=== PATIENT | female | born 1955 | race Caucasian/White ===

== ENCOUNTER 2019-06-22 08:55 | Observation (INO) ==
--- NOTE | 2019-06-22 09:02 | Emergency Department Note ---
Disposition Clinical Impression: Chest pain Disposition: Admitted As Inpatient Condition: Good Time of Disposition: 13:00 Chest Pain HPI - General Chief Complaint: ED General Medical Stated Complaint: shortness of breath, chest tightness Time Seen by Provider: 06/22/19 10:28 Source: patient, EMS Mode of arrival: EMS Limitations: no limitations Vital Signs Reviewed: Yes Nursing Notes Reviewed: Yes - History of Present Illness HPI Narrative: Patient was sitting DRINKING coffee when all of a sudden she became overwhelmed with nausea diaphoresis shortness of breath chest pressure. This is different than her typical chest pressure that she gets like when she has liver spasms if she calls it. She denies any blurred vision double vision she denies any actual vomiting. She states she crawled off the couch and then laid on the cold floor until EMS arrived. By the time EMS arrived patient was almost completely asymptomatic without any pain or symptoms. Patient's brother just recently had a heart attack approximately 2-3 weeks ago. Denies though any cough cold or flulike symptoms numbness tingling weakness recently gain weight loss any abdominal pain or discomfort. Last cardiac catheter/stress test was 30 years ago. She denies any additional complaints. Patient states that she does have some loss of memory as result of having Lyme disease symptoms and is result is also even had seizure secondary to this. All systems have been reviewed and are otherwise negative with complete entire review systems Pt complaint: chest pain Onset (ago): minute(s) Time: 08:00 Duration: constant Onset: other (While drinking coffee) Pain Location: substernal Severity: moderate Severity scale (1-10): 5 Quality: heaviness Pain Radiation: back Improves with: nothing Worsens with: nothing Context: other (recent lyme disease flair and chronic fatgue syndrome) Associated symptoms: Reports: nausea, diaphoresis, dyspnea. Denies: vomiting, sense of impending doom, syncope, palpitations, fever, cough, leg swelling Treatments prior to arrival chest pain: aspirin - Related Data Home Medications Medication Instructions Recorded Confirmed Levothyroxine [Synthroid] 88 mcg PO DAILY 05/30/16 10/19/18 Naltrexone HCl [Revia] 4.5 mg PO DAILY 05/30/16 10/19/18 Zinc [Zinc Lozenge] 50 mg PO DAILY 05/30/16 10/19/18 Cholecalciferol (D-3) [Vitamin D] 5,000 PO DAILY 04/22/19 Ciclopirox Olamine [Ciclopirox] 15 gm TP 04/22/19 Estradiol [Estrace] 42.5 gm VG 04/22/19 Furosemide [Lasix] 20 mg PO BID 04/22/19 04/22/19 LORazepam [Ativan] 0.5 mg PO BID PRN 04/22/19 04/22/19 Magnesium 200 mg PO TID 04/22/19 04/22/19 Potassium Chloride [Klor-Con 10] 10 PO BID 04/22/19 Allergies Allergy/AdvReac Type Severity Reaction Status Date / Time bee venom protein (honey bee) Allergy Anaphylaxis Verified 04/22/19 16:45 gluten Allergy See Verified 04/22/19 16:45 Comments Iodinated Contrast Media Allergy Hives Verified 04/22/19 16:45 [Iodinated Contrast Media - IV Dye] Penicillins Allergy Hives Verified 04/22/19 16:45 shellfish derived Allergy Hives Verified 04/22/19 16:45 Sulfa (Sulfonamide Allergy Hives Verified 10/19/18 16:01 Antibiotics) All systems ED: reviewed and negative except as stated. Review of Systems: As Per HPI Constitutional: Denies: fever, chills, weakness Eyes: Denies: eye pain, eye discharge ENT ED: Denies: ear pain, throat pain Cardiovascular: Reports: chest pain, other (Diaphoresis). Denies: palpitations, dyspnea on exertion Respiratory: Denies: cough, dyspnea, wheezes Gastrointestinal: Reports: nausea. Denies: abdominal pain, vomiting Genitourinary: Denies: urgency, dysuria Musculoskeletal: Denies: back pain, neck pain Integumentary: Denies: rash, abrasion Neurological: Denies: headache, weakness Psychiatric: Denies: anxiety, depression Endocrine: Denies: fatigue Hematological/Lymphatic: Denies: easy bleeding Allergic/Immunologic: Denies: facial swelling Chest Pain PMH - Past Medical History Medical history: Reports: osteoporosis, seizures, thyroid disease Surgical history: Reports: appendectomy, cholecystectomy, hysterectomy, orthopedic, other (Left foot surgery), other (Tonsillectomy, eye surgery) Psychiatric history: Reports: anxiety, depression - Social History Smoking Status: Never smoker Alcohol use: Reports: none Drug use: Reports: none Physical Exam - General Limitations: no limitations General appearance: alert, anxious - Head Head exam: atraumatic, normocephalic, normal inspection - Eye Eye exam: Present: normal appearance, PERRL, EOMI - ENT ENT exam: normal exam, normal oropharynx, mucous membranes moist - Neck Neck exam: Present: normal inspection, full ROM, trachea midline - Chest Chest inspection: Present: normal inspection, symmetric chest wall rise - Respiratory Respiratory exam: Present: normal lung sounds bilaterally - Cardiovascular Cardiovascular exam: Present: regular rate, normal rhythm, normal heart sounds - Abdominal Exam Abdominal exam: Present: soft, Non-Tender, normal bowel sounds. Absent: tenderness, distention, guarding, rebound, rigidity, mass, pulsatile mass - Expanded Upper Extremity Exam Shoulder exam: Present: normal inspection, full ROM Arm exam: Present: normal inspection, full ROM Elbow exam: Present: normal inspection, full ROM Forearm/Wrist exam: Present: normal inspection, full ROM Hand exam: Present: normal inspection, full ROM Neurosensory exam: Normal: radial nerve, ulnar nerve Vascular exam: Normal: capillary refill, radial pulse - Expanded Lower Extremity Exam Hip/Pelvis exam: Present: normal inspection, full ROM Upper leg exam: Present: normal inspection, full ROM Knee exam: Present: normal inspection, full ROM Lower leg exam: Present: normal inspection, full ROM Ankle exam: Present: normal inspection, full ROM Foot/toe exam: Present: normal inspection, full ROM Neurovascular/Tendon exam: Present: normal capillary refill, normal fine/light touch. Absent: motor deficit, sensory deficit, tendon deficit Gait: observed and normal - Back Exam Back exam: Present: normal inspection, full ROM. Absent: muscle spasm - Neurological Exam Neurological exam: Present: alert, oriented X3, CN II-XII intact, normal gait - Psychiatric Psychiatric exam: Present: normal affect, normal mood - Skin Skin exam: Present: warm, dry, intact, normal color Course Course Narrative: seen and evaluated examinations performed patient completely asymptomatic at this time she is resting comfortably at the bedside with all test results having metastatic her arrival here to the emergency room is less than she has a very strong history that this could be cardiac event as result we will recommend observation she is agreed patient be transferred to [facility] stable condition Vital Signs Temperature 97.9 F 06/22/19 08:57 Pulse Rate 71 06/22/19 08:57 Respiratory Rate 18 06/22/19 08:57 Blood Pressure 154/77 06/22/19 08:57 O2 Sat by Pulse Oximetry 98 06/22/19 08:57 Temperature 97.7 F 06/23/19 06:37 Pulse Rate 68 06/23/19 06:37 Respiratory Rate 20 06/23/19 06:37 Blood Pressure 135/75 06/23/19 06:37 O2 Sat by Pulse Oximetry 96 06/23/19 08:36 Oxygen Delivery Oxygen Delivery Room Air Chest Pain - Differential Diagnosis Likely: unstable angina pectoris, atypical chest pain, st elevation myocardial infraction, chest pain - Medical Records Medical records reviewed: Yes I reviewed the patient's medical records. - Lab Data Lab results reviewed: Yes I reviewed the patient's lab results. Result diagrams: 06/22/19 09:23 06/22/19 09:23 Lab Results 06/22/19 06/22/19 06/22/19 Range/Units 09:23 09:23 09:23 WBC 6.1 (4.3-11.1) K/mcL RBC 4.38 (3.82-4.97) M/mcL Hgb 13.1 (11.5-15.4) g/dL Hct 39.2 (35.3-44.9) % MCV 89.5 (83.0-100.0) fL MCH 29.9 (28.0-33.3) pg MCHC 33.4 (31.6-35.5) g/dL RDW 12.7 (11.5-14.5) % Plt Count 217 (140-400) K/mcL MPV 9.4 (9.4-12.4) fL Immature Gran % 0.3 (0-4) % Seg Neutrophils % 59.2 % Lymphocytes % 29.2 % Monocytes % 8.4 % Eosinophils % 2.6 % Basophils % 0.3 % Neutrophils # 3.6 (1.6-8.9) K/mcL Lymphocytes # 1.8 (0.6-4.6) K/mcL Monocytes # 0.5 (0.0-1.3) K/mcL Eosinophils # 0.2 (0.0-0.6) K/mcL Basophils # 0.0 (0.0-0.2) K/mcL PT 10.9 (9.4-12.1) Seconds INR 1.0 APTT 40.8 H (26.0-36.0) Seconds D-Dimer 671 H (0-500) ng/mLFEU Sodium 134 L (136-145) mEq/L Potassium 3.9 (3.5-5.1) mEq/L Chloride 100 (98-107) mEq/L Carbon Dioxide 28 (23-29) mEq/L BUN 15 (8-23) mg/dL Creatinine 0.58 L (0.60-1.20) mg/dL Est GFR ( Amer) > 60 (> 60) Est GFR (Non-Af Amer) > 60 (> 60) BUN/Creatinine Ratio 26 (6-26) Glucose 104 (70-105) mg/dL Calculated Osmolality 279 L (280-300) Calcium 9.1 (8.6-10.3) mg/dL Total Bilirubin 0.4 (0.3-1.0) mg/dL AST 20 (13-39) Units/L ALT 23 (7-52) Units/L Alkaline Phosphatase 114 H (34-104) Units/L Troponin I < 0.03 (< 0.04) ng/mL B-Natriuretic Peptide (Less than 100) pg/mL Serum Total Protein 6.9 (6.4-8.9) g/dL Albumin 4.1 (3.5-5.7) g/dL Globulin 2.8 (2.4-3.5) g/dL Albumin/Globulin Ratio 1.5 (1.1-2.2) Lipase 26 (11-82) Units/L 06/22/19 Range/Units 09:23 WBC (4.3-11.1) K/mcL RBC (3.82-4.97) M/mcL Hgb (11.5-15.4) g/dL Hct (35.3-44.9) % MCV (83.0-100.0) fL MCH (28.0-33.3) pg MCHC (31.6-35.5) g/dL RDW (11.5-14.5) % Plt Count (140-400) K/mcL MPV (9.4-12.4) fL Immature Gran % (0-4) % Seg Neutrophils % % Lymphocytes % % Monocytes % % Eosinophils % % Basophils % % Neutrophils # (1.6-8.9) K/mcL Lymphocytes # (0.6-4.6) K/mcL Monocytes # (0.0-1.3) K/mcL Eosinophils # (0.0-0.6) K/mcL Basophils # (0.0-0.2) K/mcL PT (9.4-12.1) Seconds INR APTT (26.0-36.0) Seconds D-Dimer (0-500) ng/mLFEU Sodium (136-145) mEq/L Potassium (3.5-5.1) mEq/L Chloride (98-107) mEq/L Carbon Dioxide (23-29) mEq/L BUN (8-23) mg/dL Creatinine (0.60-1.20) mg/dL Est GFR ( Amer) (> 60) Est GFR (Non-Af Amer) (> 60) BUN/Creatinine Ratio (6-26) Glucose (70-105) mg/dL Calculated Osmolality (280-300) Calcium (8.6-10.3) mg/dL Total Bilirubin (0.3-1.0) mg/dL AST (13-39) Units/L ALT (7-52) Units/L Alkaline Phosphatase (34-104) Units/L Troponin I (< 0.04) ng/mL B-Natriuretic Peptide 24 (Less than 100) pg/mL Serum Total Protein (6.4-8.9) g/dL Albumin (3.5-5.7) g/dL Globulin (2.4-3.5) g/dL Albumin/Globulin Ratio (1.1-2.2) Lipase (11-82) Units/L - Radiology Data Radiology results reviewed: Yes I reviewed the patient's radiology results. ITS Impressions Chest X-Ray 06/22/19 09:44 IMPRESSION: No acute cardiopulmonary disease. D/ / 06/22/2019 09:51:26 Bladimir Knight MD / [facility] Interpreting Provider: Bladimir Knigth MD - EKG Data EKG attestation: Yes I reviewed and interpreted this EKG. EKG results narrative: Sinus rhythm rate 68 FL 170 QRS 116 QT 383 access 18 this EKG is unchanged from what was provided by EMS transfer in route showing sinus rhythm nonspecific T- wave rate 81 QRS 102 FL 160 QT 362 axis XVI Heart Score - Score History: Moderately Suspicious EKG: Normal Age: 45-65 Risk Factors: 1-2 risk factors Troponin: Less than normal limit HEART Score Total: 3 Critical Care Time Critical Care Time: No
[2019-06-22 09:30] LABS: Basophils % 0.3 %; Eosinophils # 0.2 K/mcL (0.0-0.6); Eosinophils % 2.6 %; Hematocrit 39.2 % (35.3-44.9); Hemoglobin 13.1 g/dL (11.5-15.4); Immature Granulocytes % 0.3 % (0-4); Lymphocytes # 1.8 K/mcL (0.6-4.6); Lymphocytes % 29.2 %; Mean Corpuscular HGB Conc 33.4 g/dL (31.6-35.5); Mean Corpuscular Hemoglobin 29.9 pg (28.0-33.3); Mean Corpuscular Volume 89.5 fL (83.0-100.0); Mean Platelet Volume 9.4 fL (9.4-12.4); Monocytes # 0.5 K/mcL (0.0-1.3); Monocytes % 8.4 %; Neutrophils # 3.6 K/mcL (1.6-8.9); Platelet Count 217 K/mcL (140-400); Red Blood Count 4.38 M/mcL (3.82-4.97); Red Cell Distribution Width 12.7 % (11.5-14.5); Segmented Neutrophils % 59.2 %; White Blood Count 6.1 K/mcL (4.3-11.1)
[2019-06-22 09:37] LABS: Prothrombin Time 10.9 Seconds (9.4-12.1)
[2019-06-22 09:40] LABS: Activated Partial Thrombo Time 40.8 Seconds (26.0-36.0)
[2019-06-22 09:49] LABS: Alanine Aminotransferase 23 Units/L (7-52); Albumin 4.1 g/dL (3.5-5.7); Albumin/Globulin Ratio 1.5 (1.1-2.2); Alkaline Phosphatase 114 Units/L (34-104); Aspartate Amino Transferase 20 Units/L (13-39); BUN/Creatinine Ratio 26 (6-26); Bilirubin,Total 0.4 mg/dL (0.3-1.0); Blood Urea Nitrogen 15 mg/dL (8-23); Calcium 9.1 mg/dL (8.6-10.3); Carbon Dioxide 28 mEq/L (23-29); Chloride 100 mEq/L (98-107); Globulin 2.8 g/dL (2.4-3.5); Glucose 104 mg/dL (70-105); Lipase 26 Units/L (11-82); Osmolality,Calculated 279 (280-300); Potassium 3.9 mEq/L (3.5-5.1); Sodium 134 mEq/L (136-145); Total Protein 6.9 g/dL (6.4-8.9); Troponin I < 0.03 ng/mL (< 0.04); eGFR For African Americans > 60 (> 60); eGFR For Non-African Americans > 60 (> 60)
[2019-06-22] MEDS ORDERED: Naloxone 0.4 MG/ML INJ IVP PRN (13:35)
[2019-06-22] MEDS ORDERED: Ondansetron 4 MG/2 ML VIAL IVP PRN (13:35)
[2019-06-22] MEDS: ESTRADIOL 42.5 GM VG SCH (14:13)
[2019-06-22] MEDS ORDERED: Isovue-370 500 ML BOTTLE IVP ONE (15:41)
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
[2019-06-22] MEDS: Furosemide 20 MG TABLET PO SCH (17:05)
[2019-06-22] MEDS: Magnesium Oxide 400 MG TABLET PO SCH ×2 (17:05→21:07)
[2019-06-22] MEDS: *HR* Enoxaparin 80 MG/0.8 ML SYRINGE SQ SCH (17:05)
[2019-06-22] MEDS: *HR* LORazepam 0.5 MG TABLET PO PRN (18:55)
[2019-06-22] MEDS: Clotrimazole 1% CRM 15 GM TUBE TP SCH (21:00)
[2019-06-23 02:43] LABS: Chol/HDL Ratio 6.7 (0-4.9); Magnesium 2.2 mg/dL (1.6-2.6)
[2019-06-23 02:56] LABS: Thyroid Stimulating Hormone 3.572 mcIU/mL (0.340-5.600)
[2019-06-23] MEDS: *HR* Enoxaparin 80 MG/0.8 ML SYRINGE SQ SCH (06:10)
[2019-06-23 06:41] VITALS: BP 135/75
[2019-06-23] MEDS: Magnesium Oxide 400 MG TABLET PO SCH (07:49)
[2019-06-23] MEDS: Furosemide 20 MG TABLET PO SCH (07:50)
[2019-06-23] MEDS ORDERED: ZINC 50 MG PO SCH (09:00)
[2019-06-23] MEDS ORDERED: NALTREXONE 4.5 MG PO SCH (09:00)
[2019-06-23] MEDS: *HR* LORazepam 0.5 MG TABLET PO PRN (09:27)
--- NOTE | 2019-06-23 09:42 | Discharge Summary ---
Date of Encounter: 06/23/19 Time of Encounter: 09:30 - Discharge Diagnosis (1) Chest pain Priority: Primary Status: Resolved Qualifiers: Chest pain type: unspecified Qualified Code(s): R07.9 - Chest pain, unspecified (2) Elevated d-dimer Priority: Secondary Status: Acute (3) Anxiety Priority: Secondary Status: Chronic (4) Hypothyroidism Priority: Secondary Status: Chronic Qualifiers: Hypothyroidism type: unspecified Qualified Code(s): E03.9 - Hypothyroidism, unspecified Hospital course: Ms. Fierro is a 64 year old female who came to emergency room complaining of abrupt onset of dyspnea, chest pain/"tightness", and diaphoresis while at leisure approximately 0815 today. She laid on the floor and reports she felt better. EMS was called and she was transported to emergency room. She was admitted to [facility] for ongoing care needs. I saw her the afternoon of June 22 and performed a history and physical. When I saw her I did not think her chest pain pain was likely from myocardial ischemic origin. Repeat cardiac enzymes showed no evidence of myocardial damage. EKG in the ER showed no change from previous EKGs. Noncontrast chest CT was done to further evaluate her complaints of dyspnea. [Contrast CTA could not be done because of significant contrast media allergy.] The chest CT showed no acute findings or abnormality of pulmonary arteries. Pulmonary embolism was unlikely by dichotomitized Wells probability assessment score. I explained to the patient and her that the etiology of the chest discomfort was not established. I recommended additional workup be done if there was any similar recurrent symptoms. I explained she would need a VQ scan to evaluate for PE because of the iodine contrast allergy and this was not available at [facility]. I also explained that her d-dimer elevation of 671 was trivially elevated above age-adjusted normal cutoff. Additional lab work showed TSH WNL at 3.572. Lipid profile showed cholesterol 276, triglycerides 135, LDL 208, HDL 41, and total/HDL ratio 6.7. Her PCP can further address. Room air oximetry showed no significant decrease in saturation on 6 minute walk. She will be discharged home and follow with her PCP Dr. Smith within 1 week. - Time Spent with Patient Total time spent providing and/or coordinating discharge services: - Discharge Medications Prescriptions: Continued Zinc [Zinc Lozenge] 50 mg PO DAILY Naltrexone HCl [Revia] 4.5 mg PO DAILY Levothyroxine [Synthroid] 88 mcg PO DAILY LORazepam [Ativan] 0.5 mg PO BID PRN PRN Reason: Anxiety Furosemide [Lasix] 20 mg PO BID Potassium Chloride [Klor-Con 10] 10 PO BID Ciclopirox Olamine [Ciclopirox] 15 gm TP Estradiol [Estrace] 42.5 gm VG Magnesium 200 mg PO TID Cholecalciferol (D-3) [Vitamin D] 5,000 PO DAILY Home Medications: Levothyroxine [Synthroid] 88 mcg PO DAILY 05/30/16 [History] Naltrexone HCl [Revia] 4.5 mg PO DAILY 05/30/16 [History] Zinc [Zinc Lozenge] 50 mg PO DAILY 05/30/16 [History] Cholecalciferol (D-3) [Vitamin D] 5,000 PO DAILY 04/22/19 [History] Ciclopirox Olamine [Ciclopirox] 15 gm TP 04/22/19 [History] Estradiol [Estrace] 42.5 gm VG 04/22/19 [History] Furosemide [Lasix] 20 mg PO BID 04/22/19 [History] LORazepam [Ativan] 0.5 mg PO BID PRN 04/22/19 [History] Magnesium 200 mg PO TID 04/22/19 [History] Potassium Chloride [Klor-Con 10] 10 PO BID 04/22/19 [History] Allergies/Adverse Reactions: Allergy/AdvReac Type Severity Reaction Status Date / Time bee venom protein (honey bee) Allergy Anaphylaxis Verified 04/22/19 16:45 gluten Allergy See Verified 04/22/19 16:45 Comments Iodinated Contrast Media Allergy Hives Verified 04/22/19 16:45 [Iodinated Contrast Media - IV Dye] Penicillins Allergy Hives Verified 04/22/19 16:45 shellfish derived Allergy Hives Verified 04/22/19 16:45 Sulfa (Sulfonamide Allergy Hives Verified 10/19/18 16:01 Antibiotics) Date of admission: 06/22/19 13:24 Primary care physician: Josh Smith DO - Constitutional Vitals: Temp Pulse Resp BP Pulse Ox 97.7 F 68 20 135/75 96 06/23/19 06:37 06/23/19 06:37 06/23/19 06:37 06/23/19 06:37 06/23/19 08:36 - Patient Status Disposition: Home, Self-Care Condition: Fair - Discharge Instructions Follow Up With: Josh Smith DO [Primary Care Provider] - 1 week - Diet and Activity Activity: resume usual activities as tolerated Diet: low fat, low cholesterol
[2019-06-23] MEDS: Clotrimazole 1% CRM 15 GM TUBE TP SCH (09:47)
[2019-06-23] MEDS: ESTRADIOL 42.5 GM VG SCH (09:47)
--- NOTE | 2019-06-24 19:56 | Electrocardiograph Report ---
[place] [id number] Test Date: 2019-06-22 Pat Name: Yamile Elmhurst Department: EDP-16 Room: [facility] Gender: F [employer]: : 1955 Requested By: Soledad Ruiz Order Number: [id number] Reading MD: Rj Huerta Measurements Intervals [place] Rate: 68 P: 71 NC: 170 QRS: 18 QRSD: 116 T: 11 QT: 383 QTc: 408 Interpretive Statements Sinus rhythm Incomplete right bundle branch block Low voltage, precordial leads Electronically Signed On 06-24-2019 19:54:53 EDT by Rj Huerta
== END 2019-06-23 10:50 | disposition home or self-care (01) ==
LOC: INPPIK 08:55 → EMEROOPIK 08:55 → INPPIK 13:48
PROVIDERS: ADMIT Internal Medicine; ATTEND Internal Medicine